=== PATIENT | male | born 1995 | race African-American/Black ===

== ENCOUNTER 2021-04-17 23:04 | Emergency (ER) | payer SELFPAY ==
[~2021-04-17] VITALS: Ht 170.2 cm; Wt 59.0 kg
[2021-04-17 23:25] VITALS: BP 112/61
== END 2021-04-18 02:25 | disposition left against medical advice (07) ==
LOC: ER 23:04
DX: M54.50 Low back pain, unspecified (principal); Z53.21 Procedure and treatment not carried out due to patient leaving prior to being seen by health care provider
CPT/HCPCS: 72100